=== PATIENT | female | born 1985 | race African-American/Black ===

== ENCOUNTER 2020-05-01 09:36 | Outpatient (REF) | payer OTHER, SELFPAY ==
[2020-05-01 10:16] LABS: MANUAL DIFF FLAG NO
[2020-05-01 10:18] LABS: Basophils Percent Auto 0.5 % (0-2); Eosinophils Absolute Auto 0.1 X10*3/uL (0.0-0.4); Eosinophils Percent Auto 1.5 % (0-4); Hematocrit 37.5 % (37-47); Hemoglobin 12.4 g/dl (12.0-16.0); Imm Gran Abs Auto 0.02 X10*3/uL (0.00-0.03); Imm Gran Pct Auto 0.3 % (0.0-0.4); Lymphocytes Absolute Auto 3.3 X10*3/uL (1.2-4.9); Lymphocytes Percent Auto 54.2 % (20-40); Mean Corpuscular HGB Conc 33.1 g/dl (31.0-35.0); Mean Corpuscular Hemoglobin 29.7 pg (27.0-33.0); Mean Corpuscular Volume 89.9 fL (80-98); Mean Platelet Volume 10.6 fL (9.4-12.3); Monocytes Absolute Auto 0.5 X10*3/uL (0.1-1.2); Monocytes Percent Auto 8.3 % (2-11); Neutrophils Absolute Auto 2.1 X10*3/uL (2.0-8.3); Neutrophils Percent Auto 35.2 % (45-73); Platelet Count 195 X10*3/uL (160-400); Red Blood Count 4.17 X10*6/uL (4.20-5.50); Red Cell Distribution Width 12.8 % (11.0-16.0)
[2020-05-01 11:08] LABS: Alanine Aminotransferase 12 U/L (0-31); Albumin Level 4.4 g/dL (3.5-5.0); Alkaline Phosphatase 52 U/L (39-117); Anion Gap 11 (12-20); Aspartate Amino Transferase 15 U/L (5-31); Bilirubin Total 0.4 mg/dL (0.0-1.0); Blood Urea Nitrogen 11 mg/dL (9-16); Calcium 8.9 mg/dL (8.4-10.2); Carbon Dioxide 26 mmol/L (22-29); Chloride 107 mmol/L (96-108); Cholesterol 164 mg/dL; Estimated Glomerular Filt Rate > 60; Glucose Fasting 90 mg/dL (60-99); HDL Cholesterol 44 mg/dL; LDL Cholesterol Calculated 111 mg/dl; Sodium 140 mmol/L (135-145); Triglycerides 46 mg/dL
[2020-05-01 11:23] LABS: TSH reflex Free T4 0.29 mIU/mL (0.32-4.0)
[2020-05-01 12:07] LABS: Free T4 (Free Thyroxine) 0.99 ng/dL (0.71-1.85)
== END 2020-05-01 09:37 | disposition home or self-care (01) ==
LOC: HO.LAB 09:36
PROVIDERS: PCP Internal Medicine; Visit Provider Internal Medicine
DX: Z00.00 Encounter for general adult medical examination without abnormal findings (principal); E66.9 Obesity, unspecified; R61 Generalized hyperhidrosis
CPT/HCPCS: 36415; 80053; 80061; 84439; 84443; 85025

== ENCOUNTER 2023-01-31 07:35 | Emergency (ER) | payer OTHER, SELFPAY ==
[2023-01-31 07:38] VITALS: BP 129/76; PULSE 93; RESP 18; TEMP 37.3; O2SAT 100; BMI 32.1
--- OUTSIDE RECORDS SUMMARY | 2023-01-31 07:47 | XMS_ITS | Continuity of Care Document ---
Author Name Unknown Organization [facility] Address [address] [place] [address]- Care Team Providers Care Loading Shovel Oiler Name Role Phone Antony BUSBY, Virgen Luna Primary Care Physicia n [facility] Date(s): 09[facility]19 - 09/13/19 [facility] [address] [address]- [facility] Attending Physician: Admtr, [id number] Allergies, Adverse Reactions, Alerts Substance Reaction Severity Status NKA Active Problem List Condition Effective Dates Status Health Status Inform ant Atypical squamous cell hedrick es of undetermined significance (ASCUS) on cervical cytology with negative high risk human papilloma virus (HPV) test result(Confirmed) Active Depo-Provera contraceptive status(Confirmed) Active Social History Social History Type Response Smoking Status Current some day ana buchanan entered on: 02/23/17 Sex
--- OUTSIDE RECORDS SUMMARY | 2023-01-31 07:47 | XMS_ITS | Continuity of Care Document ---
Author Name Unknown Organization [facility] Address [address] [place] [address]- Care Team Providers Care Brickmason Supervisor Name Role Phone Brayan Montaño MD Primary Care Physician [phone] [id number] Date(s): 09/01/22 - 12/10/22 [facility] [address] [address]- Attending Physician: Not on Staff, Attending MD Allergies, Adverse Reactions, Alerts No Known Allergies Problem List Condition Confirmation Course Effective Dates Status H ealth Status Informant Atypical squamous cell changes of undetermined significance (ASCUS) on cervical cytology with negative high risk human papilloma virus (HPV) test result Confirmed Active Depo-Provera contraceptive status Confirmed Active Obese class I Confirmed Active Social History Social History Type Response Smoking Status Former smoker, quit more than 30 days ago entered on: 03/25/22 Sex Patient Care team information Care Team Personnel Name: Brayan Montaño MD Position: Reference Physician Member Role: PCP Address: Address: [address] [place] [address] Drive [address] [place] [address]- Care Team Related Persons Name: MARVEL OTT Address: home [address] [address] Name: MISHA BURDEN Address: [address] [place] [address]
--- OUTSIDE RECORDS SUMMARY | 2023-01-31 07:47 | XMS_ITS | Continuity of Care Document ---
Author Name Unknown Organization [facility] Address [address] [place] [address]- Care Team Providers Care Linux System Administrator Name Role Phone Antony BUSBY, Virgen Luna Primary Care Physicia n [facility] Date(s): 01/04/20 - 02/03/20 [facility] [address] [address]- [facility] Allergies, Adverse Reactions, Alerts Substance Reaction Severity [...]
--- OUTSIDE RECORDS SUMMARY | 2023-01-31 07:47 | XMS_ITS | Continuity of Care Document ---
Author Name Unknown Organization [facility] Address [address] [place] [address]- Care Team Providers Care Medical Physics Researcher Name Role Phone Antony BUSBY, Virgen Luna Primary Care Physicia n Encounter [facility] Date(s): 01/04/20 - 02/27/20 [facility] [address] [address]- [facility] Attending Physician: Not on Staff, Attending MD Allergies, Adverse Reactions, Alerts Substance Reaction Severity [...]
--- OUTSIDE RECORDS SUMMARY | 2023-01-31 07:47 | XMS_ITS | Continuity of Care Document ---
Author Name Unknown Organization [facility] Address [address] [place] [address]- Care Team Providers Care Patching Machine Operator Name Role Phone Antony BUSBY, Virgen Luna Primary Care Physicia n [facility] Date(s): 06/15/19 - 10/03/19 [facility] [address] [address]- [facility] Attending Physician: Not on Staff, Attending MD [...]
--- OUTSIDE RECORDS SUMMARY | 2023-01-31 07:47 | XMS_ITS | Continuity of Care Document ---
Author Name Unknown Organization [facility] Address [address] [place] [address]- Care Team Providers Care Coordinator Volunteer Services Name Role Phone Antony BUSBY, Virgen Luna Primary Care Physicia n [facility] Date(s): 11/20/19 - 12/21/19 [facility] [address] [address]- [facility] Attending Physician: Not on Staff, Attending MD [...]
--- OUTSIDE RECORDS SUMMARY | 2023-01-31 07:47 | XMS_ITS | Continuity of Care Document ---
Author Name Unknown Organization [facility] Address [address] [place] [address]- Care Team Providers Care Waste Machine Tender Name Role Phone Brayan Montaño MD Primary Care Physician [phone] Encounter [facility] Date(s): 04/14/21 - 05/14/21 [facility] [address] [address]- Allergies, Adverse Reactions, Alerts Substance Reaction Severity Status NKA Active Problem List Condition Effective Dates Status Health Status Inform ant Atypical squamous cell hedrick es of undetermined significance (ASCUS) on cervical cytology with negative high risk human papilloma virus (HPV) test result(Confirmed) Active Depo-Provera contraceptive status(Confirmed) Active Social History Social History Type Response Smoking Status Current some day smo ker entered on: 02/23/17 Sex
--- OUTSIDE RECORDS SUMMARY | 2023-01-31 07:47 | XMS_ITS | Continuity of Care Document ---
Author Name Unknown Organization [facility] Address [address] [place] [address]- Care Team Providers Care Car Worker Name Role Phone Antony BUSBY, Virgen Luna Primary Care Physicia n [facility] Date(s): 09/03/19 - 12/19/19 [facility] [address] [address]- [facility] Attending Physician: Not on Staff, Attending [...]
--- OUTSIDE RECORDS SUMMARY | 2023-01-31 07:47 | XMS_ITS | Continuity of Care Document ---
Author Name Unknown Organization [facility] Address [address] [place] [address]- Care Team Providers Care Media Job Titles Name Role Phone Danyel BUSBY, Brayan Cope Primary Care Physician Encounter [facility] Date(s): 10/16/21 - 01/31/22 [facility] [address] [address]- Attending Physician: Not on Staff, Attending MD Allergies, Adverse Reactions, Alerts No Known Allergies Problem List Condition Effective Dates Status Health Status Inform ant Atypical squamous cell hedrick es of undetermined significance (ASCUS) on cervical cytology with negative high risk human papilloma virus (HPV) test result(Confirmed) Active Depo-Provera contraceptive status(Confirmed) Active Obese class I(Confirmed) Active Social History Social History Type Response Smoking Status Current some day ana buchanan entered on: 02/23/17 Sex
--- OUTSIDE RECORDS SUMMARY | 2023-01-31 07:47 | XMS_ITS | Continuity of Care Document ---
Author Name Unknown Organization [facility] Address [address] [place] [address]- Care Team Providers Care Supervisor Scrap Preparation Name Role Phone Brayan Montaño MD Primary Care Physician [facility] [id number] Date(s): 04/16/22 - 06/16/22 [facility] [address] [address]- Attending Physician: Not on Staff, Attending MD [...] Reference Physician Member Role: PCP Address: Address: [address] [place] [address] Drive [address] [place] [address]- Care Team Related Persons Name: MARVEL OTT Address: [address] [address] Name: MISHA BURDEN Address: home [address] [place] [address]
--- OUTSIDE RECORDS SUMMARY | 2023-01-31 07:47 | XMS_ITS | Continuity of Care Document ---
Author Name Unknown Organization [facility] Address [address] [place] [address]- Care Team Providers Care Boring Machine Operator Double End Name Role Phone Brayan Montaño MD Primary Care Physician Encounter [facility] Date(s): 11/03/21 - 12/03/21 [facility] [address] [address] Attending Physician: Nat Do Allergies, Adverse Reactions, Alerts No Known Allergies Problem List Condition Effective Dates Status Health Status Inform ant Atypical squamous cell hedrick es of undetermined significance (ASCUS) on cervical cytology with negative high risk human papilloma virus (HPV) test result(Confirmed) Active Depo-Provera contraceptive status(Confirmed) Active Obese class I(Confirmed) Active Social History Social History Type Response Smoking Status Current some day smo dewayne entered on: 02/23/17 Sex
--- OUTSIDE RECORDS SUMMARY | 2023-01-31 07:47 | XMS_ITS | Continuity of Care Document ---
Author Name Unknown Organization [facility] Address [address] [place] [address]- Care Team Providers Care Material Stress Tester Name Role Phone Danyel BUSBY, Brayan Cope Primary Care Physician Encounter [facility] Date(s): 10/16/21 - 12/03/21 [facility] [address] [address]- Attending Physician: Not on Staff, Attending MD [...]
--- OUTSIDE RECORDS SUMMARY | 2023-01-31 07:47 | XMS_ITS | Continuity of Care Document ---
Author Name Unknown Organization [facility] Address [address] [place] [address]- Care Team Providers Care Fiberglass Grinder Name Role Phone Antony BUSBY, Virgen Luna Primary Care Physicia n [facility] Date(s): 01/02/20 - 02/01/20 [facility] [address] [address]- [facility] Allergies, Adverse Reactions, Alerts Substance Reaction Severity [...]
--- OUTSIDE RECORDS SUMMARY | 2023-01-31 07:47 | XMS_ITS | Continuity of Care Document ---
Author Name Unknown Organization [facility] Address [address] [place] [address]- Care Team Providers Care Psych Tech Name Role Phone Brayan Montaño MD Primary Care Physician [phone] Encounter [facility] Date(s): 11/07/20 - [facility]/14/21 [facility] [address] [address]- Attending Physician: Not on Staff, Attending MD [...]
--- NOTE | 2023-01-31 08:17 | PC.NURSE ---
Discharge plan reviewed with patient who verbalized understanding
--- NOTE | 2023-01-31 08:20 | ED.ALLEREA ---
HPI - Allergic Reaction General Chief complaint: Allergic Reaction Stated complaint: Allergic reaction Time Seen by Provider: 01/31/23 07:43 Source: patient Mode of arrival: ambulatory Limitations: no limitations History of Present Illness HPI narrative: 37-year-old female history of hyperhidrosis, obesity presenting to the emergency department with an itchy red scalp that started a few days ago status post getting a weave and her hair done patient tells me she thinks she is having an allergic reaction to the hair products. She tells me she thinks her head looks bigger. Patient is laughing and states that she has and staffed itching her head. And she had to call out of work because it was so itchy. Denies fevers, chills, headache, vision changes, dizziness, chest pain, shortness of breath, nausea, vomiting, abdominal pain Related Data Previous Rx's Medication Instructions Recorded hydroxyzine HCl 25 mg tablet 25 mg PO BEDTIME PRN rash #10 tabs 01/31/23 prednisone 20 mg tablet 20 mg PO DAILY 5 days #5 tabs 01/31/23 Allergies Allergy/AdvReac Type Severity Reaction Status Date / Time No Known Allergies Allergy Verified 01/29/22 09:15 Review of Systems Review of Systems: Constitutional : No Weight loss, No Fever, No Chills, No Fatigue, No Malaise ENT/Mouth : No sore throat, No Rhinorrhea Eyes: No Eye Pain, No Swelling, No Redness Cardiovascular : No Chest Pain, No SOB, No Dyspnea on Exertion, No Orthopnea, No Edema, No Palpitations Respiratory : No Cough, No Sputum, No Wheezing Gastrointestinal : No Nausea, No Vomiting, No Diarrhea, No Constipation, No abdominal Pain, No Hematochezia, No Melena Genitourinary : No Dysuria, No Urinary Frequency, No Hematuria, Musculoskeletal : No joint pain, No Myalgias, No Joint Swelling Skin : No Skin Lesions, No rash Neuro : No Weakness, No Numbness, No Dizziness, No Headache Psych : No Anxiety/Panic, No Depression All other systems reviewed and are negative Yes all other systems are reviewed and are negative [facility] Past Medical History Attestation statement: The following information was validated with the patient. Source: old records reviewed and nursing notes reviewed Medical History Hyperhidrosis Obesity (BMI 30-39.9) Surgical History Previous section Family History Family History Mother Hyperlipidemia Social History Social History Advance Directives: No Advance Directives Information Provided: No Physical Exam ED Vital Signs: Vital Signs - 24 hr 01/31/23 07:38 Temperature 99.1 F Pulse Rate 93 Respiratory Rate 18 Blood Pressure 129/76 Pulse Oximetry 100 Oxygen Delivery Method Room Air BMI result Body Mass Index 32.1 vss Appearance: Alert.? Oriented X3.? No acute distress.? Head: Normocephalic, atraumatic, no step-offs or deformities. Normal scalp. No visualized mites or lice. Eyes: Pupils equal, round and reactive to light.?\ Throat: airway patent. Uvula midline. Speaking in full sentences controlling secretions well. CVS: Normal heart rate and rhythm.? Pulses normal.? Respiratory: No respiratory distress.? Breath sounds normal.? Abdomen: Soft and nontender.? Skin: Skin warm and dry.? Normal skin color.? Normal skin turgor.? Extremities: No lower extremity edema.? No calf ttp. 5/5 strength to bilateral upper and lower extremities Neuro: Oriented X 3.? No motor deficit.? No sensory deficit. CN 2-12 intact Medical Decision Making Medical Decision Making [facility] Narrative: 0800 37-year-old female presents with an itchy scalp after getting her hair weave and colored PE benign this is likely a localized allergic reaction. No signs of anaphylaxis. I do not suspect head lice. No signs of necrotizing infection, SJS, [place]. Plan at this time discharge home with prednisone. And Atarax for itchiness. Differential Diagnosis Differential Diagnoses: The differential diagnosis associated with the presentation includes this is likely a localized allergic reaction. No signs of anaphylaxis. I do not suspect head lice. No signs of necrotizing infection, SJS, [place]. Admission/Observation Consideration of admission/observation: Escalation of care including admission/observation considered Not indicated Core Measures AMI core measures followed: Yes Measure exclusions: not indicated Critical Care Time Critical Care Time Critical Care Time: No Discharge Plan Discharge Clinical Impression: Allergic reaction Patient Disposition: Home, Self-Care Instructions: General Allergic Reaction (ED), Allergy Testing (ED) Additional Instructions: Take your medications as prescribed. If you were prescribed antibiotics today, it is important that you take your medication to their entirety, do not skip any doses, do not finish them early. Follow-up with your primary care provider this week. Return to the emergency department with new or worsening symptoms. Such as fevers, chills, chest pain, shortness of breath, nausea, vomiting, dizziness, headache, vision changes, lethargy In case of emergency call 911 Prescriptions: New prednisone 20 mg tablet 20 mg PO DAILY 5 Days Qty: 5 0RF hydroxyzine HCl 25 mg tablet 25 mg PO BEDTIME PRN (Reason: rash) Qty: 10 0RF Referrals: Brayan Montaño MD [Primary Care Provider] - 2 days Stand Alone Forms: Work/School Release Interventions: ED Discharge Assessment Last Done: 01/31/23 08:16 Discharge Date/Time: 01/31/23 08:17
== END 2023-01-31 08:17 | disposition home or self-care (01) ==
PROVIDERS: Emergency Provider Emergency Medicine; PCP Internal Medicine
DX: L50.0 Allergic urticaria (principal)
CPT/HCPCS: 99282; 99283

== ENCOUNTER 2023-06-25 08:41 | Emergency (ER) | payer OTHER, SELFPAY ==
--- NOTE | ~2023-06-25 | XR_ITS ---
EXAMINATION: XR ELBOW, RIGHT CLINICAL INFORMATION: Pain COMPARISON: None available. TECHNIQUE: AP, lateral, and oblique views of the right elbow. FINDINGS: The bones and soft tissues are normal. No fracture or joint effusion. Alignment is anatomic. Joint spaces are maintained. XR/XR elbow RT 2V IMPRESSION: Normal right elbow.
[2023-06-25 08:48] VITALS: BP 119/82; PULSE 89; RESP 18; TEMP 37.4; O2SAT 98; BMI 32.9
--- NOTE | 2023-06-25 10:18 | ED.EXTPRO ---
HPI - Extremity Problem General Chief complaint: Extremity Injury, Upper Stated complaint: R arm pain Time Seen by Provider: 06/25/23 09:42 Source: patient Mode of arrival: ambulatory Limitations: no limitations History of Present Illness HPI Narrative: 37 yo female previously healthy, right hand dominant here with complaints of right elbow pain for the last 3-4 weeks. 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 She can not recall any specific injury. She denies any associated weakness. She does have intermittent numbness and tingling from the elbow down to the wrist. She has been using icy Hot, naproxen 500 mg or ibuprofen 200 mg intermittently. Related Data Previous Rx's Medication Instructions Recorded hydroxyzine HCl 25 mg tablet 25 mg PO BEDTIME PRN rash #10 tabs 01/31/23 prednisone 20 mg tablet 20 mg PO DAILY 5 days #5 tabs 01/31/23 cyclobenzaprine 10 mg tablet 10 mg PO TID PRN muscle spasm #15 06/25/23 tabs ibuprofen 800 mg tablet 800 mg PO Q8H PRN pain #30 tabs 06/25/23 Allergies Allergy/AdvReac Type Severity Reaction Status Date / Time No Known Allergies Allergy Verified 06/25/23 08:48 Review of Systems Review of Systems: Yes all other systems are reviewed and are negative Constitutional: Constitutional: Reports no additional constitutional complaints, Denies body ache(s), Denies chills, Denies fever(s), Denies headache(s) and Denies weakness Eyes: Eyes: Reports no additional eye complaints and Denies change in vision ENT: Reports system reviewed and no additional complaints, except as documented, Denies dizziness, Denies headache(s), Denies nasal congestion, Denies nasal discharge and Denies neck pain Cardiovascular: Cardiovascular: Reports no additional cardiovascular complaints, Denies chest pain, Denies leg edema and Denies dyspnea Respiratory: Respiratory: Reports no additional respiratory complaints, Denies cough and Denies dyspnea Gastrointestinal: Gastrointestinal: Reports no additional gastrointestinal complaints, Denies abdominal pain, Denies diarrhea, Denies nausea and Denies vomiting Genitourinary: Genitourinary: Reports no additional female genitourinary complaints and Denies urinary incontinence Musculoskeletal: Musculoskeletal: Reports no additional musculoskeletal complaints, Denies back pain, Reports arthralgias, Denies joint swelling, Denies neck pain, Reports numbness and Reports tingling Integumentary/Breasts: Skin/Breast: Reports system reviewed and no additional complaints, except as docu and Denies rash Neurologic: Reports system reviewed and no additional complaints, except as documented, Denies Abnormal speech present, Denies dizziness, Denies headache(s), Reports numbness, Reports tingling and Denies weakness PMFSH Past Medical History Attestation statement: The following information was validated with the patient. Source: old records reviewed and nursing notes reviewed Onset Date is defined in the Problem List Problems that require an onset date and time if occurred within 24 hrs of arrival to the ED Aortic Dissection and Rupture; Neurologic impairment; Cardiopulmonary Arrest; Endotracheal Intubation; Insertion or Replacement of Mechanical Circulatory Assist Device Medical History Hyperhidrosis Obesity (BMI 30-39.9) Surgical History Previous section Family History Family History Mother Hyperlipidemia Social History Social History Advance Directives: No Advance Directives Information Provided: No Physical Exam Vital Signs: Vital Signs: Last Vital Signs Temp 99.4 F 06/25/23 08:48 Pulse 89 06/25/23 08:48 Resp 18 06/25/23 08:48 BP 119/82 06/25/23 08:48 Pulse Ox 98 06/25/23 08:48 O2 Del Method Room Air 06/25/23 08:48 BMI result Body Mass Index 32.9 Const: General: cooperative, healthy appearing, comfortable and no acute distress Orientation/consciousness: patient oriented x3 Limitations: no limitations HEENT: Head: Yes normal to inspection Ears: hearing grossly normal bilaterally General nose exam: Normal external nose present Face and sinus: Yes normal facial exam Mouth: Normal oral and palatal mucosa present Throat: Yes posterior oropharynx normal Eyes: General: appearance normal, both eyes and all related structures Pupils: Equal, round and reactive pupils present Neck: Neck: Yes normal visual inspection Chest: Chest palpation & inspection: normal inspection of the chest Resp: Effort & Inspection: normal respiratory effort Auscultation: clear to auscultation bilaterally Cardio: Rate: regular rate Rhythm: regular rhythm Peripheral pulses: Peripheral pulses 2+ throughout GI: Inspection: Yes normal to inspection Palpation (GI): Soft to palpation and nontender Auscultation: normal bowel sounds Back/Spine/Pelvis: Thoracic/Lumbar Spine: thoracic and lumbar spine normal to inspection Skin: General skin exam: no rashes or lesions noted Neuro: General: patient oriented x3, no focal motor deficits and normal sensation to monofilament Cranial nerves: Yes Equal, round and reactive pupils present Cognition (Neuro): normal cognition Speech: No Abnormal speech present Gait exam (Neuro): Normal gait present Motor exam (neuro): 5/5 motor strength present throughout Extrem: Other: Pain over the right lateral elbow which is worsened with extension and flexion. No pain on palpation over the shoulder or wrist with full range of motion of these joints. Normal distal sensation. Normal radial and ulnar pulses. General: Yes normal to inspection Course Course Course Narrative: x-ray shows no acute finding. Likely lateral epicondylitis. Recommend supportive care. Reviewed worrisome signs and symptoms of when to return to the emergency room. Comfortable plan for discharge home. Medical Decision Making Medical Decision Making MDM Narrative: 37 yo female previously healthy, right hand dominant here with complaints of right elbow pain for the last 3-4 weeks. 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 She can not recall any specific injury. She denies any associated weakness. She does have intermittent numbness and tingling from the elbow down to the wrist. She has been using icy Hot, naproxen 500 mg or ibuprofen 200 mg intermittently. Pain over the right lateral elbow which is worsened with extension and flexion. No pain on palpation over the shoulder or wrist with full range of motion of these joints. Normal distal sensation. Normal radial and ulnar pulses. Likely lateral epicondylitis Will check x-ray Differential Diagnosis Differential Diagnoses: The differential diagnosis associated with the presentation includes epicondylitis, tendonitis, carpal tunnel low concern for fracture, dislocation, vascular injury Admission/Observation Consideration of admission/observation: Escalation of care including admission/observation considered low concern for complex fracture, dislocation, vascular injury requiring advanced imaging, urgent orthopedic consultation Independent Interpretation I performed an independent interpretation of an: Plain X-Ray Interpretation: I independently viewed the x-ray and agree with the radiology report Radiology Impression Discussion of test interpretation with radiology: I have reviewed the radiologist's reading. Radiologist Impression: [address] [address] XRay Report Signed Patient: Darlene Yao MR#: [id number] : 1985 Acct:[id number] Age/Sex: 37 / F ADM Date: 06/25/23 Loc: HO.ED Attending Dr: Ordering Physician: Roro Watkins NP Date of Service: 06/25/23 Procedure(s): XR elbow RT 2V Accession Number(s): [id number] cc: Brayan Montaño MD; Roro Watkins NP~ EXAMINATION: XR ELBOW, RIGHT CLINICAL INFORMATION: Pain COMPARISON: None available. TECHNIQUE: AP, lateral, and oblique views of the right elbow. FINDINGS: The bones and soft tissues are normal. No fracture or joint effusion. Alignment is anatomic. Joint spaces are maintained. XR/XR elbow RT 2V IMPRESSION: Normal right elbow. Tests considered The following testing was considered but not selected: low concern for complex fracture, dislocation, vascular injury requiring advanced imaging Prescription Management I considered prescription management with: Pain Medication Discharge Plan Discharge Clinical Impression: Epicondylitis, lateral Patient Disposition: Home, Self-Care Instructions: Tennis Elbow (ED) Additional Instructions: heat or ice Gentle stretching Rest Follow-up with orthopedics for any continued symptoms Prescriptions: New ibuprofen 800 mg tablet 800 mg PO Q8H PRN (Reason: pain) Qty: 30 0RF cyclobenzaprine 10 mg tablet 10 mg PO TID PRN (Reason: muscle spasm) Qty: 15 0RF No Action prednisone 20 mg tablet 20 mg PO DAILY 5 Days Qty: 5 0RF hydroxyzine HCl 25 mg tablet 25 mg PO BEDTIME PRN (Reason: rash) Qty: 10 0RF Referrals: [facility] [place] Group] - 1 week (for continued symptoms ) Stand Alone Forms: Work/School Release
== END 2023-06-25 11:08 | disposition home or self-care (01) ==
PROVIDERS: Emergency Provider Emergency Medicine; PCP Internal Medicine
DX: M77.11 Lateral epicondylitis, right elbow (principal)
CPT/HCPCS: 73070; 99283

== ENCOUNTER 2023-07-22 10:46 | Outpatient (AMB) | payer OTHER, SELFPAY ==
--- NOTE | 2023-07-22 10:53 | MHC.OFFVIS ---
Intake Intake Visit Reasons: New PT - right elbow pain Intake Note: Darlene is a 37 year old right hand dominant female who presents today as a new patient for a evaluation of her right elbow pain. Patient reports ongoing pain for a couple of weeks. 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 She can not recall any specific injury. She does have intermittent numbness and tingling from the elbow down to the wrist. Her pain/numbness is worse at night per patient. She states that using topical gel with mild relief. Hx of taking ibuprofen with no relief. with Hx of using tennis elbow brace with no relief. Patient states when using hot compresses make her pain feel better. Allergies No Known Allergies Allergy (Verified 07/22/23 10:57) HPI New PT - right elbow pain HPI Details 37-year-old right hand dominant female who presents in the office today, as a new patient, for an evaluation of right elbow pain. The patient presented to the ED on 06/25/2023 status post 3-4 weeks of pain. She reports intermittent numbness and tingling from the elbow down to the wrist, per the ED note. X-rays were obtained. While in the office today the patient reports ongoing pain for a couple of weeks. She can not recall any known injury. She reports intermittent numbness and tingling from the elbow to the wrist. She states her numbness is worse at night. She claims topical gel gives her mild relief. She states Ibuprofen gives her no relief. She has been wearing a tennis elbow brace with no relief. She states a hot compress gives some pain relief. 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 [facility] Medical History Hyperhidrosis Obesity (BMI 30-39.9) Surgical History Previous section Family History Mother Hyperlipidemia Social History (Updated 07/22/23 @ 10:58 by Britton Mo) Patient Tobacco Use Status: Never used Tobacco Substance Use Type: Marijuana Review of Systems Const All systems reviewed & are unremarkable except as noted in HPI and below Physical Exam Const General: cooperative and no acute distress Orientation/consciousness: patient oriented x3 Resp Effort & Inspection: normal respiratory effort and able to speak in complete sentences Cardio Peripheral pulses: Peripheral pulses 2+ throughout Skin General skin exam: no rashes or lesions noted Neuro General: patient oriented x3 Extrem Other: Right elbow: Normal to inspection. No ecchymosis, erythema, or edema. Tenderness to palpation over the lateral epicondyle. Full ROM in all planes. No pain at the lateral epicondyle with resisted wrist extension. Sensation intact. Radial pulse intact. Assessment & Plan Assessment & Plan (1) Lateral epicondylitis, right elbow: Code(s): M77.11 - Lateral epicondylitis, right elbow Plan Ms. Yao is a 37-year-old right hand dominant female who presents in the office today, as a new patient, for an evaluation of right elbow pain. The patient presented to the ED on 06/25/2023 status post 3-4 weeks of pain. She reports intermittent numbness and tingling from the elbow down to the wrist, per the ED note. X-rays were obtained. While in the office today the patient reports ongoing pain for a couple of weeks. She can not recall any known injury. She reports intermittent numbness and tingling from the elbow to the wrist. She states her numbness is worse at night. She claims topical gel gives her mild relief. She states Ibuprofen gives her no relief. She has been wearing a tennis elbow brace with no relief. She states a hot compress gives some pain relief. 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 The patient was offered a referral to occupational therapy in the office today, which she has agreed to attend and complete all sessions. I discussed the role of cortisone injections with the patient, however, at this time she wishes to deferred to due hesitation of her pain. She has requested a light duty note for work, I have recommended no repetitive motion and a 10lb weight limit for lifting. Follow up will be 6 weeks, or sooner if needed. X-rays of the right elbow, obtained on 06/25/2023, revealed: No acute fracture or dislocation. Orders: Orders OT Evaluation and Treatment Today M77.11 - Lateral epicondylitis, right elbow Patient Instructions: Scribed by Erika Gonzalez, medical record librarians teacher, for Diane Paul PA-C on 07/22/2023 at 10:48 am, EST. Coding Level of Care Code New Pt Level 4 (97710) Diagnoses Lateral epicondylitis, right elbow M77.11
== END 2023-07-22 11:20 | disposition home or self-care (01) ==
PROVIDERS: PCP Internal Medicine; Visit Provider Physician Assistant
DX: M77.11 Lateral epicondylitis, right elbow (principal)
CPT/HCPCS: 99203

== ENCOUNTER → 2023-07-22 10:46 | Outpatient (BNVA) | payer OTHER, SELFPAY | PROVIDERS: PCP Internal Medicine; Visit Provider Physician Assistant | DX: M77.11 Lateral epicondylitis, right elbow (principal) | CPT/HCPCS: 99202 ==

== ENCOUNTER 2023-11-24 17:04 | Emergency (ER) | payer OTHER, SELFPAY ==
--- NOTE | 2023-11-24 | ECG_ITS ---
Test Reason : PALPITATIONS Blood Pressure : / mmHG Vent. Rate : 065 BPM Atrial Rate : 065 BPM P-R Int : 170 ms QRS Dur : 070 ms QT Int : 400 ms P-R-T Axes : 062 061 051 degrees QTc Int : 416 ms Artifact in tracing Normal sinus rhythm Septal infarct , age undetermined Abnormal ECG No previous ECGs available Referred By: Generic ED Physician Electronically Signed By:PRATEEK KEYS
[2023-11-24 18:00] VITALS: BP 142/77; PULSE 66; RESP 17; TEMP 37; O2SAT 99; BMI 33.1
[2023-11-24 19:00] LABS: MANUAL DIFF FLAG NO
[2023-11-24 19:10] LABS: Basophils Absolute Auto 0.1 X10*3/uL (0.0-0.2); Basophils Percent Auto 0.6 % (0-2); Eosinophils Absolute Auto 0.1 X10*3/uL (0.0-0.4); Eosinophils Percent Auto 0.7 % (0-4); Hemoglobin 12.6 g/dl (12.0-16.0); Imm Gran Abs Auto 0.03 X10*3/uL (0.00-0.03); Imm Gran Pct Auto 0.3 % (0.0-0.4); Lymphocytes Absolute Auto 2.6 X10*3/uL (1.2-4.9); Lymphocytes Percent Auto 28.7 % (20-40); Mean Corpuscular HGB Conc 34.1 g/dl (31.0-35.0); Mean Corpuscular Hemoglobin 29.7 pg (27.0-33.0); Mean Corpuscular Volume 87.3 fL (80.0-98.0); Mean Platelet Volume 10.2 fL (9.4-12.3); Monocytes Absolute Auto 0.8 X10*3/uL (0.1-1.2); Monocytes Percent Auto 9.3 % (2-11); Neutrophils Absolute Auto 5.4 x10*3/uL (2.0-8.3); Neutrophils Percent Auto 60.4 % (45-73); Platelet Count 239 X10*3/uL (160-400); Red Blood Count 4.24 X10*6/uL (4.20-5.50); Red Cell Distribution Width 12.8 % (11.0-16.0); White Blood Count 8.9 X10*3/uL (4.8-10.8)
[2023-11-24 19:19] LABS: Alanine Aminotransferase 12 U/L (0-31); Albumin Level 4.5 g/dL (3.5-5.0); Alkaline Phosphatase 57 U/L (39-117); Anion Gap 9 (12-20); Aspartate Amino Transferase 17 U/L (5-31); Bilirubin Direct 0.2 mg/dL (0.0-0.5); Bilirubin Total 0.4 mg/dL (0.0-1.0); Blood Urea Nitrogen 11 mg/dL (9-16); Calcium 9.7 mg/dL (8.4-10.2); Carbon Dioxide 24 mmol/L (22-29); Chloride 107 mmol/L (96-108); Creatinine Clr Calc Pharmacy 121.4; Estimated Glomerular Filt Rate > 60; Glucose Random 90 mg/dL (60-115); Lipase 29 U/L (8-78); Magnesium 2.1 mg/dL (1.6-2.6); Potassium 3.4 mmol/L (3.3-5.1); Sodium 137 mmol/L (135-145); Total Protein 7.6 g/dL (6.5-8.0)
[2023-11-24 19:28] LABS: Troponin-I High Sensitivity < 2.7 ng/L (<3.5-17.0)
[2023-11-24 19:40] LABS: TSH reflex Free T4 0.92 uIU/mL (0.32-4.0)
[2023-11-24 19:50] LABS: INTERNATIONAL NORM RATIO 1.1 (0.9-1.1); Prothrombin Time 13.4 SEC (11.1-13.3)
--- NOTE | 2023-11-24 19:50 | ED_ITS ---
HPI - Dizziness General Chief Complaint: Dizziness Stated Complaint: dizziness heart racing Time Seen by Provider: 11/25/23 00:23 Source: patient Mode of arrival: ambulatory Limitations: no limitations History of Present Illness ED Provider: Jocelyne Buckley PA-C HPI Narrative: 37-year-old female with history of anxiety presents with palpitations. Patient states she has been having intermittent palpitations over the past 2 weeks. When they occur, patient describes a ?racing heart rate, in the sense that she can not catch her breath. Patient does admit that she is hyperventilating during these periods. Patient gets to the point where she feels as if she is going to ?pass out?. Patient states she has numerous psychosocial stressors at home involving her daughter; the daughter is currently suicidal and is a meds counseling. Patient denies chest pain, known thyroid dysfunction. Related Data Previous Rx's ?Medication ?Instructions ?Recorded hydroxyzine HCl 10 mg tablet 10 mg PO DAILY #30 tabs 11/30/23 cyclobenzaprine 10 mg tablet 10 mg PO TID PRN muscle spasm #30 12/02/23 tabs ibuprofen 800 mg tablet 800 mg PO Q8H PRN pain #90 tabs 12/02/23 Allergies Allergy/AdvReac Type Severity Reaction Status Date / Time No Known Allergies Allergy Verified 11/30/23 10:23 Review of Systems 2 Review of Systems: Yes all other systems are reviewed and are negative Constitutional: Constitutional: Denies fatigue and Denies fever(s) Cardiovascular: Cardiovascular: Denies chest pain, Reports palpitations and Denies dyspnea Respiratory: Respiratory: Denies dyspnea Gastrointestinal: Gastrointestinal: Denies nausea Psychiatric: Psychiatric: Reports anxiety and Reports panic attacks Endocrine: Endocrine: Denies fatigue and Reports palpitations PMF Past Medical History Attestation statement: The following information was validated with the patient. Medical History Hyperhidrosis Obesity (BMI 30-39.9) Surgical History Previous section Family History Family History (Updated 11/30/23 @ 10:31 by FROILAN Morris) Mother Hyperlipidemia Other Mental health disorder Social History Social History (Updated 11/30/23 @ 10:32 by SCOTT Morris Housing: Apartment Alcohol intake: never Patient Tobacco Use Status: Never used Tobacco e-Cigarette/Vaping Use: Never Used Second Hand Smoke Exposure: No Substance Use Type: Marijuana Substance Use Frequency: Occasionally service: No Current occupational status: employed Current occupation: [employer] Cognitive needs: No Hearing needs: No Vision needs: No Physical Exam 2 Vital Signs: Vital Signs: Last Vital Signs Temp 98.0 F 11/25/23 02:27 Pulse 55 11/25/23 02:27 Resp 17 11/25/23 02:27 BP 129/84 11/25/23 02:27 Pulse Ox 100 11/25/23 01:45 O2 Del Method Room Air 11/25/23 02:27 BMI result Body Mass Index 33.1 Const: Other: Alert well in appearance sitting up on her phone in bed Orientation/consciousness: oriented to person, oriented to place and oriented to time Resp: Other: Nonlabored respiration Cardio: Other: Normal peripheral perfusion Skin: Other: No rash Neuro: General: oriented to person, oriented to place and oriented to time Extrem: Other: Ambulates with normal steady gait Psych: Other: Somewhat hostile at times, overall cooperative Course Course Course Narrative: This is an RME: Additional HPI, ROS, PE not included below will be deferred to primary provider. RME assessment and note performed by: Adelina Srivastava PA-C This is a 37-year-old female, with a history of hyperhidrosis, who presents emergency department with complaints of near syncope. She feels like her heart is beating fast in his also experiencing some lightheadedness. Symptoms started 2 weeks ago however reports that the symptoms have resolved. She states that yesterday while she was lying on her bed she felt as though her heart was beating very fast. She was at a today and felt lightheaded palpitations. Pulse 66 beats per minute. Plan: Labs, EKG, further ER evaluation needed. Medical Decision Making Medical Decision Making MDM Narrative: 37-year-old female with history of anxiety presents with palpitations. Patient states she has been having intermittent palpitations over the past 2 weeks. When they occur, patient describes a ?racing heart rate, in the sense that she can not catch her breath. Patient does admit that she is hyperventilating during these periods. Patient gets to the point where she feels as if she is going to ?pass out?. Patient states she has numerous psychosocial stressors at home involving her daughter; the daughter is currently suicidal and is a meds counseling. Patient denies chest pain, known thyroid dysfunction. Problem: Anxiety History: Per patient I have considered the following differential diagnoses: Palpitations, orthostatic hypotension, panic attack, ACS, thyroid dysfunction, arrhythmia Plan: I do feel the patient is having panick attacks as the cause for her palpitations and sense that she can not catch her breath. Patient admits that she has had panic attacks in the past, and that her symptoms are consistent with her prior episodes. We will be sending with outpatient resources for counseling and therapy in regard to her numerous psychosocial stressors. Screening labs were obtained from triage, there is no underlying or get an cause identified that could have potentially acted her palpitations; i.e. anemia, infection, electrolyte abnormality. We will be adding on a TSH and T4. There was no arrhythmia identified on the EKG. The patient will be advised to follow up as an outpatient for Holter monitor trial to determine if she truly has an abnormal rhythm of the heart. ACS also considered, however her symptoms are not consistent with ACS and she has no risk factors for vascular disease, her heart score is 0. Troponin was obtained as well. Orthostatic vitals obtained, and they are within normal limits. I have independently reviewed the following tests: Labs: No leukocytosis, no anemia, no electrolyte abnormality, thyroid function normal, trop negative EKG: Sinus rhythm, no ischemic changes no ectopy Differential Diagnosis Differential Diagnoses: The differential diagnosis associated with the presentation includes Palpitations, orthostatic hypotension, panic attack, ACS, thyroid dysfunction, arrhythmia Lab Data 11/24/23 18:53 11/24/23 18:53 Labs: Lab Results 11/24/23 11/24/23 Range/Units 18:53 19:29 WBC 8.9 (4.8-10.8) X10*3/uL RBC 4.24 (4.20-5.50) X10*6/uL Hgb 12.6 (12.0-16.0) g/dl Hct 37.0 (37.0-47.0) % MCV 87.3 (80.0-98.0) fL MCH 29.7 (27.0-33.0) pg MCHC 34.1 (31.0-35.0) g/dl RDW 12.8 (11.0-16.0) % Plt Count 239 (160-400) X10*3/uL MPV 10.2 (9.4-12.3) fL Immature Gran % (Auto) 0.3 (0.0-0.4) % Neut % (Auto) 60.4 (45-73) % Lymph % (Auto) 28.7 (20-40) % [place] % (Auto) 9.3 (2-11) % Eos % (Auto) 0.7 (0-4) % Baso % (Auto) 0.6 (0-2) % Lymph # (Auto) 2.6 (1.2-4.9) X10*3/uL [place] # (Auto) 0.8 (0.1-1.2) X10*3/uL Eos # (Auto) 0.1 (0.0-0.4) X10*3/uL Baso # (Auto) 0.1 (0.0-0.2) X10*3/uL Abs Immat Gran (auto) 0.03 (0.00-0.03) X10*3/uL Absolute Neuts (auto) 5.4 (2.0-8.3) x10*3/uL Absolute Nucleated RBC 0.000 (0.0-0.012) X10*3/uL Nucleated RBC % (auto) 0.0 (0.0-0.2) /100WBC PT 13.4 H (11.1-13.3) SEC INR 1.1 (0.9-1.1) APTT 27.7 (26.0-36.8) SEC Sodium 137 (135-145) mmol/L Potassium 3.4 (3.3-5.1) mmol/L Chloride 107 (96-108) mmol/L Carbon Dioxide 24 (22-29) mmol/L Anion Gap 9 L (12-20) BUN 11 (9-16) mg/dL Creatinine 0.63 (0.5-1.4) mg/dL Estim Creat Clear Calc 121.4 Estimated GFR > 60 Random Glucose 90 (60-115) mg/dL Calcium 9.7 D (8.4-10.2) mg/dL Magnesium 2.1 (1.6-2.6) mg/dL Total Bilirubin 0.4 (0.0-1.0) mg/dL Direct Bilirubin 0.2 (0.0-0.5) mg/dL AST 17 (5-31) U/L ALT 12 (0-31) U/L Alkaline Phosphatase 57 (39-117) U/L Troponin I High Sens < 2.7 (<3.5-17.0) ng/L Total Protein 7.6 (6.5-8.0) g/dL Albumin 4.5 (3.5-5.0) g/dL Lipase 29 (8-78) U/L TSH 0.92 (0.32-4.0) uIU/mL Discharge Plan Discharge Clinical Impression: Psychosocial stressors, Heart palpitations, Anxiety Patient Disposition: Home, Self-Care Instructions: Heart Palpitations (ED), Anxiety (ED) Additional Instructions: You were seen in the emergency department for palpitations. All of your screening labs were completely normal. There were no concerning changes on her EKG. I do feel that your recent psychosocial stressors are contributing to the palpitations, I do feel that you have been having panic attacks over the past few weeks. I am prescribing a short course of hydroxyzine, this is a medication that we used to treat anxiety, use it as needed. To note this medication may cause drowsiness. Do not drive or operate machinery while taking the medication. I have also sent you with a list of outpatient resources for you to seek counseling. Follow up with your primary care provider in regard to the palpitations. It is likely that you will be placed on a Holter monitor trial to determine the nature of the abnormal rhythm you are experiencing. Prescriptions: No Action ibuprofen 800 mg tablet 800 mg PO Q8H PRN (Reason: pain) Qty: 90 0RF Rx Instructions: Take with food cyclobenzaprine 10 mg tablet 10 mg PO TID PRN (Reason: muscle spasm) Qty: 30 0RF hydroxyzine HCl 10 mg tablet 10 mg PO DAILY Qty: 30 0RF Stand Alone Forms: Work/School Release Interventions: ED Discharge Assessment Last Done: 11/25/23 02:27 Discharge Date/Time: 11/25/23 02:33 Print Language: Japanese
[2023-11-24 19:53] LABS: Partial Thromboplastin Time 27.7 SEC (26.0-36.8)
[2023-11-24 22:49] VITALS: BP 117/66; PULSE 57; RESP 15; TEMP 37.1; O2SAT 99
[2023-11-25 01:39] VITALS: BP 115/68; PULSE 59
[2023-11-25 01:41] VITALS: BP 121/67; PULSE 57
[2023-11-25 01:43] VITALS: BP 139/81; PULSE 63
[2023-11-25 01:45] VITALS: BP 112/70; PULSE 59; RESP 17; TEMP 37.3; O2SAT 100
[2023-11-25 02:27] VITALS: BP 129/84; PULSE 55; RESP 17; TEMP 36.7
== END 2023-11-25 02:33 | disposition home or self-care (01) ==
PROVIDERS: Physician Assistant Medical; Emergency Provider Emergency Medicine; PCP Internal Medicine
DX: F43.9 Reaction to severe stress, unspecified (principal); R00.2 Palpitations; F41.9 Anxiety disorder, unspecified
CPT/HCPCS: 36415; 80048; 80076; 83690; 83735; 84443; 84484; 85025; 85610; 85730; 93005; 99283; 99284

== ENCOUNTER → 2023-11-24 17:14 | Outpatient (BNV) | payer OTHER, SELFPAY | PROVIDERS: Emergency Provider Emergency Medicine; PCP Internal Medicine; Visit Provider Internal Medicine | DX: R00.2 Palpitations (principal) | CPT/HCPCS: 93010 ==

== ENCOUNTER 2023-11-30 10:08 | Outpatient (AMB) | payer OTHER, SELFPAY ==
--- NOTE | 2023-11-30 10:19 | MHC.PC.OV ---
Vital Signs 11/30/23 10:24 Height 5 ft 3 in Weight 176 lb 8 oz BMI 31.3 BP 110/76 Blood Pressure Location Lt brachial Position Sitting Intake Visit Reasons: Ed f/u, med refills/ establish care Intake Note: Patient is here to re-establish care, previous pcp is Dr Montaño. Medication review and refill. Human Resources Office Assistant Required: No Roll Tender: Not Required per policy Accompanied by: Self / Same As Patient Allergies No Known Allergies Allergy (Verified 11/30/23 10:23) Tobacco use date assessed: 11/30/23 Dental Screening Dental Screen Date: 11/30/23 Did you have a dental visit in the last 12 months?: Yes Did you have a dental problem in the last 6 months where you did not have access to dental care?: No Was dental information given to patient?: Patient has dentist HPI Ed f/u, med refills/ establish care HPI Details 37 yr old female presents to the office for a sick visit. I am covering for her regular provider. She was in the ER for an anxiety episode a few days ago. She was given hydroxyzine which helped with her symptoms. She would like to have a refill. Patient's daughter is 15 yrs old and is going thru mental health issues and she believes that was a stress factor. [facility]LY [facility] Medical History Hyperhidrosis Obesity (BMI 30-39.9) Surgical History Previous section Family History (Updated 11/30/23 @ 10:31 by FROILAN Morris) Mother Hyperlipidemia Other Mental health disorder Social History (Updated 11/30/23 @ 10:32 by FROILAN Morris) Housing: Apartment Alcohol intake: never Patient Tobacco Use Status: Never used Tobacco e-Cigarette/Vaping Use: Never Used Second Hand Smoke Exposure: No Substance Use Type: Marijuana Substance Use Frequency: Occasionally service: No Current occupational status: employed Current occupation: [employer] Cognitive needs: No Hearing needs: No Vision needs: No Questionnaire PHQ-9 Over the last 2 weeks, how often have you been bothered by any of the following problems? 1. Little interest or pleasure in doing things: not at all 2. Feeling down, depressed, or hopeless: not at all 3. Trouble falling or staying asleep, or sleeping too much: not at all 4. Feeling tired or having little energy: not at all 5. Poor appetite or overeating: not at all 6. Feeling bad about yourself - or that you are a failure or have let yourself or your family down: not at all 7. Trouble concentrating on things, such as reading the newspaper or watching television: not at all 8. Moving or speaking so slowly that other people could have noticed. Or the opposite - being so fidgety or restless that you have been moving around a lot more than usual: not at all 9. Thoughts that you would be better off or of hurting yourself in some way: not at all Total score: 0 Depression Screening Interpretation: Negative Depression Screening Done: Yes Source: Developed by Drs. Burt Rios, Yuliet Dickerson, Nile Grace and colleagues, with an educational dalila from [employer]. Thrive Questionnaire Date Thrive assessed: 11/30/23 I am a: Patient What is your living situation today?: I have a steady place to live Within the past 12 months, did the food you bought not last and you didn't have the money to get more?: Never true Within the past 12 months, did you worry whether your food would run out before you got money to buy more?: Never true Do you have trouble paying for medicines?: No Do you have trouble getting transportation to medical appointments?: No Do you have trouble paying your heating and electricity bill?: No Do you have trouble taking care of your child, family member or friend?: No Do you have trouble with day-to-day activities such as bathing, preparing meals, shopping, managing finances, etc.?: No Are you currently unemployed and looking for a job?: No Are you interested in more education?: No Currently or been in a relationship where the following occur: no concerns reported THRIVE Score: 0 AUDIT C Alcohol Use Questionnaire (AUDIT-C) 1. How often do you have a drink containing alcohol?: Never Total Score: 0 AR-7 AMB Questionnaire AR-7 Date AR - 7 assessed: 11/30/23 Feeling nervous, anxious, or on edge: 2 = More than half the days Not being able to stop or control worryin = More than half the days Worrying too much about different things: 2 = More than half the days Trouble relaxin = Several days Being so restless that it is hard to sit still: 0 = Not at all Becoming easily annoyed or irritable: 0 = Not at all Feeling afraid as if something awful might happen: 2 = More than half the days Total AR-7 score (0-4 normal; 5-9 mild; 10-14 moderate; 15-21 severe): 9 Source: Developed by Drs. Burt Rios, Yuliet Dickerson, Nile Grace and colleagues, with an educational dalila from [employer]. Physical exam (Primary Care) Vital Signs: Last Vital Signs BP 110/76 11/30/23 10:24 BMI result Body Mass Index 31.3 Tobacco/Smoking Status: Tobacco use Status Tobacco use date assessed 11/30/23 11/30/23 10:36 Patient Tobacco Use Status Never used Tobacco 11/30/23 10:32 e-Cigarette/Vaping Use Never Used 11/30/23 10:36 PHQ-9: PHQ-9 Score PHQ-9: Total score 0 11/30/23 10:21 Depression Screening Interpretation: Negative Thrive Assessment: Date of Thrive Assessment Date Thrive assessed 11/30/23 11/30/23 10:21 Currently or been in a relationship where the following occur: no concerns reported Const General: cooperative and healthy appearing Nutritional Appearance: well nourished Orientation/consciousness: patient oriented x3 Limitations: no limitations HENMT Head: Yes normal to inspection Eyes General: appearance normal, both eyes and all related structures Neck Neck: Yes normal visual inspection Chest Chest palpation & inspection: normal palpation of entire chest wall Resp Effort & Inspection: normal respiratory effort Neuro General: patient oriented x3 Assessment and Plan Assessment & Plan (1) Anxiety disorder, unspecified: Code(s): F41.9 - Anxiety disorder, unspecified Plan: Patient wishes to have a prescription of hydroxyzine. Helps her sleep. Will use it judiciously. Does not want any treatment for anxiety including therapy. Medications: Changed From hydroxyzine HCl 10 mg PO TID 7 tabs 0RF To hydroxyzine HCl 10 mg PO DAILY 30 tabs 0RF Coding Level of Care Code Est Pt Level 3 (22711) Complex EM visit Add On G2211 Diagnoses Anxiety disorder, unspecified F41.9
[2023-11-30 10:24] VITALS: BP 110/76; BMI 31.3
== END 2023-11-30 13:04 | disposition home or self-care (01) ==
PROVIDERS: PCP Internal Medicine; Visit Provider Internal Medicine
DX: F41.9 Anxiety disorder, unspecified (principal)
CPT/HCPCS: 99213; G2211

== ENCOUNTER 2024-03-06 08:34 | Outpatient (REF) | payer SELFPAY ==
[2024-03-06 08:47] LABS: MANUAL DIFF FLAG NO
[2024-03-06 09:23] LABS: Basophils Percent Auto 0.8 % (0-2); Eosinophils Absolute Auto 0.2 X10*3/uL (0.0-0.4); Eosinophils Percent Auto 4.6 % (0-4); Hematocrit 37.8 % (37.0-47.0); Hemoglobin 12.8 g/dl (12.0-16.0); Imm Gran Abs Auto 0.01 X10*3/uL (0.00-0.03); Imm Gran Pct Auto 0.2 % (0.0-0.4); Lymphocytes Absolute Auto 2.2 X10*3/uL (1.2-4.9); Lymphocytes Percent Auto 46.5 % (20-40); Mean Corpuscular HGB Conc 33.9 g/dl (31.0-35.0); Mean Corpuscular Hemoglobin 29.5 pg (27.0-33.0); Mean Corpuscular Volume 87.1 fL (80.0-98.0); Mean Platelet Volume 10.2 fL (9.4-12.3); Monocytes Absolute Auto 0.4 X10*3/uL (0.1-1.2); Monocytes Percent Auto 7.8 % (2-11); Neutrophils Absolute Auto 1.9 x10*3/uL (2.0-8.3); Neutrophils Percent Auto 40.1 % (45-73); Platelet Count 233 X10*3/uL (160-400); Red Blood Count 4.34 X10*6/uL (4.20-5.50); Red Cell Distribution Width 12.3 % (11.0-16.0); White Blood Count 4.8 X10*3/uL (4.8-10.8)
[2024-03-06 09:48] LABS: Appearance Urine Cloudy; Color Urine Dark Yellow; Glucose Urine UA Negative (Negative); Leukocyte Esterase Urine Negative (Negative); Nitrite Urine Negative (Negative); PH 5.5 (5.0-9.0); Specific Gravity - Urine >= 1.030 (1.005-1.025); UMIC TRIGGER UACC YES; Urine Blood Trace (Negative); Urine Ketones Negative (Negative); Urine Protein Trace mg/dL (Neg-Trace)
[2024-03-06 09:57] LABS: Bacteria Urine Trace (None Seen); Hyaline Casts Urine 0-2 /LPF (0-2); WBC Urine 0-5 /HPF (0-5)
[2024-03-06 09:58] LABS: Alanine Aminotransferase 8 U/L (0-31); Albumin Level 4.5 g/dL (3.5-5.0); Alkaline Phosphatase 58 U/L (39-117); Anion Gap 11 (12-20); Aspartate Amino Transferase 13 U/L (5-31); Bilirubin Total 0.5 mg/dL (0.0-1.0); Blood Urea Nitrogen 12 mg/dL (9-16); Calcium 9.7 mg/dL (8.4-10.2); Carbon Dioxide 26 mmol/L (22-29); Chloride 108 mmol/L (96-108); Cholesterol 164 mg/dL (<200); Estimated Glomerular Filt Rate > 60; Glucose Fasting 88 mg/dL (60-99); HDL Cholesterol 45 mg/dL (>40); LDL Cholesterol Calculated 109 mg/dL (<100); Potassium 3.7 mmol/L (3.3-5.1); Sodium 141 mmol/L (135-145); Total Protein 7.6 g/dL (6.5-8.0); Triglycerides 54 mg/dL (<150)
[2024-03-06 10:19] LABS: TSH reflex Free T4 0.46 uIU/mL (0.32-4.0); Vitamin D 25-OH Total 18.1 ng/mL (>30)
== END 2024-03-06 08:35 | disposition home or self-care (01) ==
LOC: HO.LAB 08:34
PROVIDERS: PCP Internal Medicine; Visit Provider Internal Medicine
DX: Z00.00 Encounter for general adult medical examination without abnormal findings (principal); E78.00 Pure hypercholesterolemia, unspecified; E55.9 Vitamin D deficiency, unspecified; D64.9 Anemia, unspecified
CPT/HCPCS: 36415; 80053; 80061; 81001; 82306; 84443; 85025

== ENCOUNTER → 2024-03-19 10:31 | Outpatient (BNVA) | payer SELFPAY | PROVIDERS: PCP Internal Medicine; Visit Provider Internal Medicine ==

== ENCOUNTER 2024-06-07 10:00 | Outpatient (AMB) | payer OTHER, SELFPAY ==
--- NOTE | 2024-06-07 10:01 | A.OFFPC_ITS ---
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 Accompanied by: Self / Same As Patient Allergies No Known Allergies Allergy (Verified 06/07/24 10:27) Medication List - Last Reconciled 06/07/24 by Brayan Montaño MD hydroxyzine HCl 10 mg PO TID PRN ibuprofen 800 mg PO Q8H PRN Tobacco use date assessed: 06/07/24 Dental Screening Dental Screen Date: 06/07/24 Did you have a dental visit in the last 12 months?: Yes Did you have a dental problem in the last 6 months where you did not have access to dental care?: No Was dental information given to patient?: Patient has dentist HPI RE-ESTABLISH CARE OVERDUE ANNUAL PE- NEEDS PHQ9 HPI Details Patient comes in today for her annual physical examination and to reestablish care - she has not been back in over 4 years (was last seen here in 04/28/2020) Patient states that she feels well except for some pressure and discomfort in her right ear, which she states she's had for a few days now She denies any ear drainage or any recent cough/cold symptoms or sore throat She denies any headaches or dizziness; denies any fever Denies any chest pains, no SOB No nausea/vomiting, no abdominal pain No change in bowel habits noted She denies any acute urinary symptoms Reports that she has been experiencing recurrent low back pain for the past year or so She denies any recent back injury or trauma and is thinking that her back pains are mostly related to her recent weight gain States that she takes some OTC Ibuprofen when needed with (+) temporary relief Patient goes to 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 next month to recheck this She had her follow up labs done back in February 2024 - to discuss her results Patient adds that she has gained a lot of weight since she was last here and would like to get some Rx to help her lose weight [facility] Medical History (Updated 06/08/24 @ 04:44 by Brayan Montaño MD) Anxiety Vitamin D deficiency Hyperhidrosis Obesity (BMI 30-39.9) Surgical History Previous section Family History Mother Hyperlipidemia Other Mental health disorder Social History Housing: Apartment Alcohol intake: never Patient Tobacco Use Status: Never used Tobacco e-Cigarette/Vaping Use: Never Used Second Hand Smoke Exposure: No Substance Use Type: Marijuana service: No Current occupational status: employed Current occupation: [employer] Cognitive needs: No Hearing needs: No Vision needs: No Questionnaire PHQ-9 Over the last 2 weeks, how often have you been bothered by any of the following problems? 1. Little interest or pleasure in doing things: not at all 2. Feeling down, depressed, or hopeless: not at all 3. Trouble falling or staying asleep, or sleeping too much: not at all 4. Feeling tired or having little energy: not at all 5. Poor appetite or overeating: not at all 6. Feeling bad about yourself - or that you are a failure or have let yourself or your family down: not at all 7. Trouble concentrating on things, such as reading the newspaper or watching television: not at all 8. Moving or speaking so slowly that other people could have noticed. Or the opposite - being so fidgety or restless that you have been moving around a lot more than usual: not at all 9. Thoughts that you would be better off or of hurting yourself in some way: not at all Total score: 0 Depression Screening Interpretation: Negative Depression Screening Done: Yes 11710 - PHQ-9 Billing: Yes Source: Developed by Drs. Burt Rios, Yuliet Dickerson, Nile Grace and colleagues, with an educational dalila from [employer]. Thrive Questionnaire Date Thrive assessed: 06/07/24 I am a: Patient What is your living situation today?: I have a steady place to live Within the past 12 months, did the food you bought not last and you didn't have the money to get more?: Never true Within the past 12 months, did you worry whether your food would run out before you got money to buy more?: Never true Do you have trouble paying for medicines?: No Do you have trouble getting transportation to medical appointments?: No Do you have trouble paying your heating and electricity bill?: No Do you have trouble taking care of your child, family member or friend?: No Do you have trouble with day-to-day activities such as bathing, preparing meals, shopping, managing finances, etc.?: No Are you currently unemployed and looking for a job?: Yes Are you interested in more education?: No Please select the resources that you would like help with: None Currently or been in a relationship where the following occur: No concerns reported THRIVE Score: 0 AUDIT C Alcohol Use Questionnaire (AUDIT-C) 1. How often do you have a drink containing alcohol?: Never 3. How often do you have six or more drinks on one occasion?: Never Total Score: 0 Score Reviewed/Action Taken: Yes AR-7 AMB Questionnaire AR-7 Date AR - 7 assessed: 06/07/24 Feeling nervous, anxious, or on edge: 0 = Not at all Not being able to stop or control worryin = Not at all Worrying too much about different things: 0 = Not at all Trouble relaxin = Not at all Being so restless that it is hard to sit still: 0 = Not at all Becoming easily annoyed or irritable: 0 = Not at all Feeling afraid as if something awful might happen: 0 = Not at all Total AR-7 score (0-4 normal; 5-9 mild; 10-14 moderate; 15-21 severe): 0 Source: Developed by Drs. Burt Rios, Yuliet Dickerson, Nile Grace and colleagues, with an educational dalila from [employer]. Review of Systems Const Denies chills, Denies fatigue, Denies fever(s), Denies headache(s), Denies malaise and Reports weight gain Eyes Denies blurry vision, Denies change in vision, Denies irritation and Denies itchy eyes ENT Denies dysphagia, Denies dizziness, Denies ear discharge, Reports otalgia (more of right ear pressure and discomfort), Denies headache(s), Denies nasal congestion, Denies neck pain, Denies odynophagia, Denies sinus pain and Denies sore throat Card Denies chest pain, Denies rapid heart rate, Denies irregular heart rhythm, Denies palpitations and Denies dyspnea Resp Denies chest congestion, Denies cough, Denies dyspnea and Denies wheezing GI Denies abdominal pain, Denies bloating, Denies constipation, Denies dysphagia, Denies heartburn, Denies diarrhea, Denies nausea, Denies odynophagia and Denies vomiting Denies hematuria, Denies urinary frequency, Denies dysuria, Denies urinary incontinence and Denies urinary urgency Musc Reports back pain (on and off over the lower back ), Denies arthralgias, Denies joint swelling, Denies muscle weakness and Denies neck pain Skin/Breast Denies breast pain, Denies breast mass, Denies change in pigmentation, Denies lesions, Denies rash and Denies unusual bruising Neuro Denies dizziness, Denies headache(s) and Denies paresthesias Psych Denies anxiety and Denies depression Endo Denies fatigue and Denies palpitations Seth/Lymph Denies easy bruising Aller/Immun Denies itchy eyes and Denies wheezing Physical exam (Primary Care) Vital Signs: Last Vital Signs Pulse 64 06/07/24 10:02 BP 110/68 06/07/24 10:02 Oxygen Delivery Method Room Air 06/07/24 10:02 BMI result Body Mass Index 34.7 Tobacco/Smoking Status: Tobacco use Status Tobacco use date assessed 06/07/24 06/07/24 10:08 Patient Tobacco Use Status Never used Tobacco 06/07/24 10:08 e-Cigarette/Vaping Use Never Used 06/07/24 10:08 PHQ-9: PHQ-9 Score PHQ-9: Total score 0 06/07/24 10:30 Depression Screening Interpretation: Negative Thrive Assessment: Date of Thrive Assessment Date Thrive assessed 06/07/24 06/07/24 10:08 Currently or been in a relationship where the following occur: No concerns reported Const General: no acute distress, alert and awake Orientation/consciousness: patient oriented x3 HENMT Head: Yes normocephalic and Yes atraumatic Ears: external ears normal, TM normal on the left, EAC's normal and TM abnormal with fluid behind the TM on the right General nose exam: No nasal discharge present Face and sinus: Yes normal facial exam and Yes sinuses nontender Teeth and gingiva: dentition normal Throat: Yes posterior oropharynx normal and Yes tonsils normal (no TP congestion) Eyes Eyelids: Yes eyelids normal Conjunctivae: conjunctivae normal Pupils: Equal, round and reactive pupils present EOM: EOMs intact bilaterally Neck Neck: Yes no lymphadenopathy and Yes supple Thyroid: Thyroid normal Resp Auscultation: clear to auscultation bilaterally, no rales and no wheezes Cardio Rate: regular rate Rhythm: regular rhythm Heart sounds: no murmurs GI Palpation (GI): Soft to palpation, nontender and No hepatosplenomegaly present Auscultation: normal bowel sounds General: Yes no CVA tenderness Back/Spine/Pelvis Back: no CVA tenderness Thoracic/Lumbar Spine: lumbar spinal tenderness (mild) Skin Lesions: no lesions Rashes: no rashes Neuro General: patient oriented x3, moves all extremities, no focal motor deficits and CN's II-XI intact bilaterally Cranial nerves: Yes Equal, round and reactive pupils present Cognition (Neuro): normal cognition Gait exam (Neuro): Normal gait present Extrem General: Yes no clubbing, cyanosis or edema Results Reviewed Results Reviewed: Laboratory Tests 03/06/24 08:46 WBC 4.8 Hgb 12.8 Hct 37.8 Plt Count 233 Sodium 141 Potassium 3.7 Creatinine 0.70 Estimated GFR > 60 Fasting Glucose 88 Calcium 9.7 AST 13 ALT 8 Triglycerides 54 Cholesterol 164 LDL Cholesterol, Calc 109 H HDL Cholesterol 45 25-OH Vitamin D Total 18.1 L TSH 0.46 Urine pH 5.5 Ur Specific [place] >= 1.030 H Urine Protein Trace Urine Glucose (UA) Negative Urine Blood Trace H Urine Nitrite Negative Ur Leukocyte Esterase Negative Coding Level of Care Code New Pt Prev Care 18-39yr(26036 Diagnoses Annual physical exam Z00.00 Right otitis media, unspecified otitis media type H66.91 Otitis media type: unspecified Vitamin D deficiency E55.9 Midline low back pain without sciatica, unspecified chronicity M54.50 Chronicity: unspecified Back pain laterality: midline Sciatica presence: without sciatica Anxiety F41.9 Obesity (BMI 30-39.9) E66.9 Additional Codes PHQ-9 - 34485 - PHQ-9 Billing: Yes ([id number]) Assessment & Plan Assessment & Plan (1) Annual physical exam: Code(s): Z00.00 - Encounter for general adult medical examination without abnormal findings Category: Medical Plan: Results of her labs done back in February (2023) reviewed and discussed with patient She is currently up-to-date with her annual gynecology exam and pap smear - goes to [facility] in [place] (2) Otitis media, right: Code(s): H66.91 - Otitis media, unspecified, right ear Category: Medical Qualifiers: Otitis media type: unspecified Qualified Code(s): H66.91 - Otitis media, unspecified, right ear Plan: Will start patient empirically on Augmentin 875 mg BID x 10 days (3) Vitamin D deficiency: Code(s): E55.9 - Vitamin D deficiency, unspecified Category: Medical Plan: Continue Vitamin D3 2000 units QD - she was advised to start taking this when her labs came back in February 2024 with low vitamin D level (4) Low back pain: Code(s): M54.50 - Low back pain, unspecified Category: Medical Qualifiers: Chronicity: unspecified Back pain laterality: midline Sciatica presence: without sciatica Qualified Code(s): M54.50 - Low back pain, unspecified Plan: This is likely due to her recent weight gain and should improve with some weight loss Reinforced activity and weight-lifting restrictions to minimize aggravating her low back pain If her low back pain persists or gets worse, can consider sending her for lumbar spine x-rays for further evaluation (5) Anxiety: Code(s): F41.9 - Anxiety disorder, unspecified Category: Medical Plan: Continue Hydroxyzine 10 mg TID PRN (6) Obesity (BMI 30-39.9): Code(s): E66.9 - Obesity, unspecified Category: Medical Plan: Reinforced diet/exercise as tolerated/lose weight Per request, will try starting her on Wegovy 0.25 mg SQ once a week (if covered by her health insurance) to help her lose weight Plan Follow up in 4 months Medications: New amoxicillin-pot clavulanate 875-125 mg 1 tab PO BID 10 days 20 tabs 0RF semaglutide (weight loss) (Wegovy) administer weeks 1 through 4 of therapy 0.25 mg (0.5 mL) subcut QWEEK 4 weeks 2 mL 0RF cholecalciferol (vitamin D3) 50 mcg PO DAILY 90 days 90 caps 3RF E55.9 - Vitamin D deficiency, unspecified
[2024-06-07 10:02] VITALS: BP 110/68; PULSE 64; BMI 34.7
== END 2024-06-07 10:49 | disposition home or self-care (01) ==
PROVIDERS: PCP Internal Medicine; Visit Provider Internal Medicine
DX: Z00.00 Encounter for general adult medical examination without abnormal findings (principal); H66.91 Otitis media, unspecified, right ear; E66.9 Obesity, unspecified; Z68.34 Body mass index [BMI] 34.0-34.9, adult; E55.9 Vitamin D deficiency, unspecified; M54.50 Low back pain, unspecified; F41.9 Anxiety disorder, unspecified

== ENCOUNTER → 2024-06-07 10:00 | Outpatient (BNVA) | payer OTHER, SELFPAY | PROVIDERS: PCP Internal Medicine; Visit Provider Internal Medicine | DX: Z00.00 Encounter for general adult medical examination without abnormal findings (principal); H66.91 Otitis media, unspecified, right ear; E55.9 Vitamin D deficiency, unspecified; M54.50 Low back pain, unspecified; F41.9 Anxiety disorder, unspecified; E66.9 Obesity, unspecified; Z68.34 Body mass index [BMI] 34.0-34.9, adult | CPT/HCPCS: 96127; 99385 ==

== ENCOUNTER 2024-10-09 09:46 | Outpatient (AMB) | payer OTHER, SELFPAY ==
[2024-10-09 09:59] VITALS: BP 110/80; PULSE 78; O2SAT 99; BMI 37.3
--- NOTE | 2024-10-09 09:59 | A.OFFPC_ITS ---
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 Accompanied by: Self / Same As Patient Allergies No Known Allergies Allergy (Verified 10/09/24 10:31) Medication List - Last Reconciled 10/09/24 by Brayan Montaño MD cholecalciferol (vitamin D3) 50 mcg PO DAILY 90 days hydroxyzine HCl 10 mg PO TID PRN ibuprofen 800 mg PO Q8H PRN Tobacco use date assessed: 10/09/24 Dental Screening Dental Screen Date: 10/09/24 HPI 4mt f/u HPI Details Patient comes in today for her follow up visit States that she feels okay We tried starting patient on Wegovy at her last visit but her Rx was denied by insurance and she has gained more weight since She denies any headaches or dizziness Denies any chest pains, no SOB No nausea/vomiting, no abdominal pain No change in bowel habits noted [facility] Medical History Anxiety Vitamin D deficiency Hyperhidrosis Obesity (BMI 30-39.9) Surgical History Previous section Family History Mother Hyperlipidemia Other Mental health disorder Social History Housing: Apartment Alcohol intake: never Patient Tobacco Use Status: Never used Tobacco e-Cigarette/Vaping Use: Never Used Second Hand Smoke Exposure: No Substance Use Type: Marijuana service: No Current occupational status: employed Current occupation: [employer] Cognitive needs: No Hearing needs: No Vision needs: No Questionnaire PHQ-9 Over the last 2 weeks, how often have you been bothered by any of the following problems? 1. Little interest or pleasure in doing things: not at all 2. Feeling down, depressed, or hopeless: not at all 3. Trouble falling or staying asleep, or sleeping too much: not at all 4. Feeling tired or having little energy: not at all 5. Poor appetite or overeating: not at all 6. Feeling bad about yourself - or that you are a failure or have let yourself or your family down: not at all 7. Trouble concentrating on things, such as reading the newspaper or watching television: not at all 8. Moving or speaking so slowly that other people could have noticed. Or the opposite - being so fidgety or restless that you have been moving around a lot more than usual: not at all 9. Thoughts that you would be better off or of hurting yourself in some way: not at all Total score: 0 Depression Screening Interpretation: Negative Depression Screening Done: Yes 91998 - PHQ-9 Billing: Yes Source: Developed by Drs. Burt Rios, Yuliet Dickerson, Nile Grace and colleagues, with an educational dalila from [employer] Thrive Questionnaire Date Thrive assessed: 10/09/24 I am a: Patient What is your living situation today?: I have a steady place to live Within the past 12 months, did the food you bought not last and you didn't have the money to get more?: Never true Within the past 12 months, did you worry whether your food would run out before you got money to buy more?: Never true Do you have trouble paying for medicines?: No Do you have trouble getting transportation to medical appointments?: No Do you have trouble paying your heating and electricity bill?: No Do you have trouble taking care of your child, family member or friend?: No Do you have trouble with day-to-day activities such as bathing, preparing meals, shopping, managing finances, etc.?: No Are you currently unemployed and looking for a job?: No Are you interested in more education?: No Please select the resources that you would like help with: None Currently or been in a relationship where the following occur: No concerns reported THRIVE Score: 0 AUDIT C Alcohol Use Questionnaire (AUDIT-C) 1. How often do you have a drink containing alcohol?: Never 3. How often do you have six or more drinks on one occasion?: Never Total Score: 0 Score Reviewed/Action Taken: Yes AR-7 AMB Questionnaire AR-7 Date AR - 7 assessed: 10/09/24 Feeling nervous, anxious, or on edge: 0 = Not at all Not being able to stop or control worryin = Not at all Worrying too much about different things: 0 = Not at all Trouble relaxin = Not at all Being so restless that it is hard to sit still: 0 = Not at all Becoming easily annoyed or irritable: 0 = Not at all Feeling afraid as if something awful might happen: 0 = Not at all Total AR-7 score (0-4 normal; 5-9 mild; 10-14 moderate; 15-21 severe): 0 Source: Developed by Drs. Burt Rios, Yuliet Dickerson, Nile Grace and colleagues, with an educational dalila from [employer] Review of Systems Const Denies chills, Denies fatigue, Denies fever(s) and Denies headache(s) ENT Denies dysphagia, Denies dizziness, Denies otalgia, Denies headache(s), Denies neck pain, Denies odynophagia and Denies sore throat Card Denies chest pain, Denies irregular heart rhythm, Denies palpitations and Denies dyspnea Resp Denies chest congestion, Denies cough and Denies dyspnea GI Denies abdominal pain, Denies constipation, Denies dysphagia, Denies heartburn, Denies diarrhea, Denies nausea, Denies odynophagia and Denies vomiting Denies urinary frequency, Denies dysuria and Denies urinary urgency Musc Reports back pain (on and off over the lower back ), Denies arthralgias and Denies neck pain Skin/Breast Denies rash Neuro Denies dizziness, Denies headache(s) and Denies paresthesias Psych Denies anxiety and Denies depression Endo Denies fatigue and Denies palpitations Seth/Lymph Denies easy bruising Physical exam (Primary Care) Vital Signs: Last Vital Signs Pulse 78 10/09/24 09:59 BP 110/80 10/09/24 09:59 Pulse Ox 99 10/09/24 09:59 Oxygen Delivery Method Room Air 10/09/24 09:59 BMI result Body Mass Index 37.3 Tobacco/Smoking Status: Tobacco use Status Tobacco use date assessed 10/09/24 10/09/24 10:07 Patient Tobacco Use Status Never used Tobacco 10/09/24 10:07 e-Cigarette/Vaping Use Never Used 10/09/24 10:07 PHQ-9: PHQ-9 Score PHQ-9: Total score 0 10/09/24 10:07 Depression Screening Interpretation: Negative Thrive Assessment: Date of Thrive Assessment Date Thrive assessed 10/09/24 10/09/24 10:07 Currently or been in a relationship where the following occur: No concerns reported Const General: no acute distress and alert HENMT Ears: TM's normal bilaterally and EAC's normal Throat: Yes posterior oropharynx normal and Yes tonsils normal (no TP congestion) Neck Neck: Yes supple and No lymphadenopathy Thyroid: Thyroid normal Resp Auscultation: clear to auscultation bilaterally, no rales and no wheezes Cardio Rate: regular rate Rhythm: regular rhythm Heart sounds: no murmurs GI Palpation (GI): Soft to palpation and nontender Auscultation: normal bowel sounds General: Yes no CVA tenderness Back/Spine/Pelvis Back: no CVA tenderness Thoracic/Lumbar Spine: lumbar spinal tenderness (mild) Skin Rashes: no rashes Extrem General: Yes no clubbing, cyanosis or edema Coding Level of Care Code Est Pt Level 3 (91516) Diagnoses Vitamin D deficiency E55.9 Midline low back pain without sciatica, unspecified chronicity M54.50 Chronicity: unspecified Back pain laterality: midline Sciatica presence: without sciatica Anxiety F41.9 Obesity (BMI 30-39.9) E66.9 Additional Codes PHQ-9 - 95454 - PHQ-9 Billing: Yes ([id number]) Assessment & Plan Assessment & Plan (1) Vitamin D deficiency: Code(s): E55.9 - Vitamin D deficiency, unspecified Category: Medical Plan: Continue Vitamin D3 2000 units QD Will recheck her labs and vitamin D level in May 2025 - she is advised to get her labs done just before her annual physical appointment (2) Low back pain: Code(s): M54.50 - Low back pain, unspecified Category: Medical Qualifiers: Chronicity: unspecified Back pain laterality: midline Sciatica presence: without sciatica Qualified Code(s): M54.50 - Low back pain, unspecified Plan: This is likely due to her recent weight gain and should improve with some weight loss Reinforced activity and weight-lifting restrictions to minimize aggravating her low back pain If her low back pain persists or gets worse, can consider sending her for lumbar spine x-rays for further evaluation (3) Anxiety: Code(s): F41.9 - Anxiety disorder, unspecified Category: Medical Plan: Continue Hydroxyzine 10 mg TID PRN (4) Obesity (BMI 30-39.9): Code(s): E66.9 - Obesity, unspecified Category: Medical Plan: Reinforced diet/exercise as tolerated/lose weight We tried starting her on Wegovy 0.25 mg SQ once a week to help her lose weight at her last visit but this was denied by insurance Will go ahead and refer her to weight management - we have been advised previously that her insurance will only cover the weight loss medication(s) if they are prescribed in conjunction with a certified weight management program Plan To return as scheduled in May 2025 for her next annual physical examination Orders: Orders UA CC w/rflx Micro + Cult 06/01/25 R30.0 - Dysuria, Z00.00 - Encounter for general adult medical examination without abnormal findings Complete Blood Count Auto Diff 06/01/25 D64.9 - Anemia, unspecified, Z00.00 - Encounter for general adult medical examination without abnormal findings Comprehensive Roy. Panel Fast 06/01/25 E78.00 - Pure hypercholesterolemia, unspecified, Z00.00 - Encounter for general adult medical examination without abnormal findings Lipid Panel 06/01/25 E78.00 - Pure hypercholesterolemia, unspecified, Z00.00 - Encounter for general adult medical examination without abnormal findings TSH reflex Free T4 06/01/25 E78.00 - Pure hypercholesterolemia, unspecified, Z00.00 - Encounter for general adult medical examination without abnormal findings Vitamin D 25-OH Total 06/01/25 E55.9 - Vitamin D deficiency, unspecified, Z00.00 - Encounter for general adult medical examination without abnormal findings Referrals Medical Weight Management Referral E66.9 - Obesity, unspecified
--- OUTSIDE RECORDS SUMMARY | 2024-10-09 10:56 | XMS_ITS | Clinical Summary ---
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 Role Phone Unavailable Primary Care Provider Unavailabl e Social History Tobacco Use Types Packs/Day Years Used Date Smoking Tobacco: Never Assessed Comments Unknown Sex and Gender Information Value Date Recorded Sex Assigned at Not on file Legal Sex Female 5:13 PM EST Gender Identity Not on file Sexual Orientation Not on file Plan of Treatment Health Maintenance Due Date Last Done Comments DTaP,Tdap,and Td Vaccines (1 - Tdap) 2004 Hepatitis B Vaccines (1 of 3 - 19+ 3-dose series) 2004 Cervical Cancer Screening: P ap Smear 2006 COVID-19 Vaccine (2023-2 5 season) 2024 Influenza Vaccine (Season Ended) 2025 HIB Vaccines Aged Out No longer eligi ble based on patient's age to complete this topic HPV Vaccines Aged Out No longer eligi ble based on patient's age to complete this topic Hepatitis A Vaccines Aged Out No long er eligible based on patient's age to complete this topic IPV Vaccines Aged Out No longer eligi ble based on patient's age to complete this topic MMR Vaccines Aged Out No longer eligi ble based on patient's age to complete this topic Meningococcal ACWY Vaccine Aged Out N o longer eligible based on patient's age to complete this topic Meningococcal B Vaccine Aged Out No l onger eligible based on patient's age to complete this topic Pneumococcal Vaccine: Pediat rics (0 to 5 Years) and At-Risk Patients (6 to 64 Years) Aged Out No longer eligible b ased on patient's age to complete this topic RSV Immunization Patients Un tara 20 months Aged Out No longer eligible b ased on patient's age to complete this topic Varicella Vaccines Aged Out No longer eligible based on patient's age to complete this topic
== END 2024-10-09 10:37 | disposition home or self-care (01) ==
LOC: HO.HMCH 09:47
PROVIDERS: PCP Internal Medicine; Visit Provider Internal Medicine
DX: E55.9 Vitamin D deficiency, unspecified (principal); M54.50 Low back pain, unspecified; E66.9 Obesity, unspecified; Z68.37 Body mass index [BMI] 37.0-37.9, adult; F41.9 Anxiety disorder, unspecified

== ENCOUNTER → 2024-10-09 09:46 | Outpatient (BNVA) | payer OTHER, SELFPAY | PROVIDERS: PCP Internal Medicine; Visit Provider Internal Medicine | DX: E55.9 Vitamin D deficiency, unspecified (principal); M54.50 Low back pain, unspecified; F41.9 Anxiety disorder, unspecified; E66.9 Obesity, unspecified; Z68.37 Body mass index [BMI] 37.0-37.9, adult; Z79.899 Other long term (current) drug therapy | CPT/HCPCS: 96127; 99212 ==

== ENCOUNTER 2024-11-06 09:11 | Outpatient (AMB) | payer OTHER, SELFPAY ==
--- NOTE | 2024-11-06 09:14 | AM.OFFVISNUR ---
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 unit/0.1 mL intradermal injection solution Performing Provider: Brayan Montaño MD [facility] Administered by: Rani Gan RN on 11/06/24 09:23 Dose Route Admin Location Dispensed Lot Number Expiration Date [facility] Combustion Engineer 0.1 mL intradermal right forearm 0.1 mL [id number] 05/12/27 90991-291-39 [employer] Assessment & Plan Assessment & Plan Orders: Orders AMB PPD Planted Today Z11.1 - Encounter for screening for respiratory tuberculosis Medications: New tuberculin PPD 0.1 mL intradermal ONCE 0.1 mL 0RF Z11.1 - Encounter for screening for respiratory tuberculosis Coding
--- OUTSIDE RECORDS SUMMARY | 2024-11-06 09:44 | XMS_ITS | Clinical Summary ---
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
== END 2024-11-06 09:25 | disposition home or self-care (01) ==
LOC: HO.HMCH 09:12
PROVIDERS: PCP Internal Medicine; Visit Provider Internal Medicine
DX: Z11.1 Encounter for screening for respiratory tuberculosis (principal)

== ENCOUNTER → 2024-11-06 09:11 | Outpatient (BNVA) | payer OTHER, SELFPAY | PROVIDERS: PCP Internal Medicine; Visit Provider Internal Medicine | DX: Z11.1 Encounter for screening for respiratory tuberculosis (principal) | CPT/HCPCS: 86580 ==

== ENCOUNTER → 2024-11-08 09:46 | Outpatient (BNVA) | payer OTHER, SELFPAY | PROVIDERS: PCP Internal Medicine; Visit Provider Internal Medicine | DX: Z13.89 Encounter for screening for other disorder (principal) ==

== ENCOUNTER 2025-06-07 09:03 | Outpatient (AMB) | payer OTHER, SELFPAY ==
--- OUTSIDE RECORDS SUMMARY | 2025-06-02 23:59 | XMS_ITS | Continuity of Care Document ---
Author Organization [facility] Address [address] [place] [id number] Support Name Relationship Address Phone NICOLE, SIM Personal Relationship Unknown Mindi vailable NICOLE, SIM Personal Relationship Unknown Mindi vailable NICOLE, SIM Personal Relationship Unknown Mindi vailable NICOLE, SIM Personal Relationship Unknown Mindi vailable NICOLE, SIM Personal Relationship Unknown Mindi vailable NICOLE, SIM Personal Relationship Unknown Mindi vailable NICOLE, SIM Personal Relationship Unknown Mindi vailable NICOLE, SIM Personal Relationship Unknown Mindi vailable NICOLE, SIM Personal Relationship Unknown Mindi vailable NICOLE, SIM Personal Relationship Unknown Mindi vailable NICOLE, SIM Personal Relationship Unknown Mindi vailable OTT, MARVEL mother Unknown Unavailable PROGRAM, STD Personal Relationship Unknown Unavai lable NICOLE, SIM Personal Relationship Unknown Mindi vailable OTT, DEMETRIS Personal Relationship Unknown Mindi vailable NICOLE, SIM Personal Relationship Unknown Mindi vailable [place], MISHA sibling Unknown Unavaila ble NICOLE, SIM Personal Relationship Unknown Mindi vailable NICOLE, SIM Personal Relationship Unknown Mindi vailable NICOLE, SIM Personal Relationship Unknown Mindi vailable NICOLE, SIM Personal Relationship Unknown Mindi vailable NICOLE, SIM Personal Relationship Unknown Mindi vailable NICOLE, SIM Personal Relationship Unknown Mindi vailable NICOLE, SIM Personal Relationship Unknown Mindi vailable NICOLE, SIM Personal Relationship Unknown Mindi vailable NICOLE, SIM Personal Relationship Unknown Mindi vailable NICOLE, SIM Personal Relationship Unknown Mindi vailable OTT, DEMETRIS Personal Relationship Unknown Mindi vailable NICOLE, SIM Personal Relationship Unknown Mindi vailable Care Team Providers Care Meal Cooker Name Role Phone Brayan Montaño MD Primary Care Physician Encounter [facility] Date(s): 02/15/25 - 06/02/25 [facility] [address] [address] Attending Physician: Not on Staff, Attending MD Admitting Physician: Not on Staff, Admitting MD Referring Physician: Not on Staff, Referring MD Encounter Type: Pre-OutPatient One Time Allergies, Adverse Reactions, Alerts No Known Allergies Medications hydrOXYzine hydrochloride 25 mg oral tablet 1 tablet = 25 mg, By Mouth, Daily, # 30 tablet, 0 Refills, Maintenance, 01/20/24 9:35:00 AM EDT, Tablet, Partial fill upon patient request if the prescription is for a schedule II opioid drug. Start Date: 01/20/24 Status: Ordered Medication Dispense Status: Completed Quantity: 30.0 Unit: tablet Total Allowed Fills: 1 Fills Dispensed: 0 Problem List Condition Confirmation Course Effective Dates Status H ealth Status Informant Atypical squamous cell changes of undetermined significance (ASCUS) on cervical cytology with negative high risk human papilloma virus (HPV) test result Confirmed Active Depo-Provera contraceptive status Confirmed Active Obese class II Confirmed Active Social History Social History Type Response Sexual Sexually involved in last 6 months: Yes. Smoking Status Former smoker, quit more than 30 days ago entered on: 03/25/22 Sex Sex Representation Female (finding) Patient Care team information Care Team Personnel Name: Brayan Montaño MD Position: Reference Physician Member Role: PCP Address: [address] [place] [address] Telecom: Care Team Related Persons Name: MARVEL OTT Name: MISHA BURDEN Insurance Providers Guarantor name: DEMETRIS OTT Health Plan Information #: 1 Payer: [employer] Payer Identifier: NA Member Number: [id number] Group Number: [id number] Subscriber Identifier: [id number] Relationship to Subscriber: self Coverage Type: NA Coverage Verification Date: NA Telecom: NA Address:
--- OUTSIDE RECORDS SUMMARY | 2025-06-07 09:05 | XMS_ITS | Clinical Summary ---
Author Organization [facility] Address [address] [place] [address] Care Team Providers Care Pediatric Dental Assistant Name Role Phone Unavailable Primary Care Provider [...] Cervical Cancer Screening: P ap Smear 2006 HPV Vaccines (1 - 3-dose SCD M series) 2012 Depression Screening 06/13/2024 COVID-19 Vaccine ( - 2024-2 6 season) 2025 Influenza Vaccine (#1) 2025 RSV Immunization Adult Patie nts (1 - 1-dose 75+ series) 2060 HIB Vaccines Aged Out No longer eligi [...] 5 Years) and At-Risk Patients (6 to 49 Years) Aged Out No longer eligible b ased on patient's age to complete this topic RSV Immunization Patients Un tara 20 months Aged Out No longer eligible b ased on patient's age to complete this topic Varicella Vaccines Aged Out No longer eligible based on patient's age to complete this topic
[2025-06-07 09:27] VITALS: BP 126/80; PULSE 60; RESP 18; TEMP 37.2; O2SAT 99; BMI 34.5
--- NOTE | 2025-06-07 09:27 | AM.OFFWIN_ITS ---
Intake Vital Signs 06/07/25 09:27 Height 5 ft 3 in Weight 195 lb BMI 34.5 BP 126/80 Blood Pressure Location Lt brachial Position Sitting Respiration 18 Pulse 60 Pulse Source Pulse Oximeter Temp 99 F Temp Source Oral Pulse Oximetry (%) 99 Oxygen Delivery Method Room Air Intake Visit Reasons: EP Cough, ear pain right side, chest discomfort Intake Note: EP has cough, right side ear pain, chill, chest and abdomen discomfort while coughing started two weeks ago. Patient Tobacco Use Status: Never used Tobacco Allergies No Known Allergies Allergy (Verified 06/07/25 09:41) Do you need a note to return to daycare/school/sports/work: Yes HPI HPI Comments History of Present Illness Details History of Present Illness The patient is a 39 year old female presenting with a persistent cough for 2 weeks. - The patient has experienced a cough fo r about 2 weeks, which she initially believed was a common cold. - The cough sometimes causes left-sided abdominal muscle pain due to forceful coughing. - Associated symptoms include wheezing, right ear pain, and nasal congestion. - She reported having chills the previou s night. - The patient denies any personal histor y of asthma - She attempted self-treatment with Muci nex, cough drops, tea, and a 3-4 day course of amoxicillin that she had at home and ibuprofen about a week ago, none of which provided relief. Review of Systems - Constitutional: Reports chills. - HEENT: Reports right otalgia, popping and clicking sensation in the ear. Reports nasal congestion and postnasal drip. Denies sinus pain or pressure. - Respiratory: Reports a cough for 10 we eks and wheezing. Denies shortness of breath. - Gastrointestinal: Reports left-sided a bdominal muscle pain secondary to coughing. Reports nausea. Denies vomiting or diarrhea. Physical Exam General Appearance: Normal appearance, well developed. No acute distress HEENT: Normocephalic, atraumatic. External ears and ear canals normal. TM without erythema or bulging, however middle ear effusions noted bilaterally. Clear nasal drainage with post nasal drip present. Oropharynx clear without erythema or exudate. No cervical lymphadenopathy palpated. Cardiac: Regular rate and rhythm. No murmurs. Pulmonary: No respiratory distress. Speaking in full sentences. Clear to auscultation bilaterally Musculoskeletal: Moving all extremities spontaneously and against gravity Mental Status: Alert and Oriented x 3 Psychiatric: Normal mood. Normal affect. [facility] Medical History Anxiety Vitamin D deficiency Hyperhidrosis Obesity (BMI 30-39.9) Surgical History Previous section Family History Mother Hyperlipidemia Other Mental health disorder Social History Housing: Apartment Alcohol intake: never Patient Tobacco Use Status: Never used Tobacco e-Cigarette/Vaping Use: Never Used Second Hand Smoke Exposure: No Substance Use Type: Marijuana service: No Current occupational status: employed Current occupation: [employer] Cognitive needs: No Hearing needs: No Vision needs: No Physical Exam Vital Signs: Last Vital Signs Temp 99 F 06/07/25 09:27 Pulse 60 06/07/25 09:27 Resp 18 06/07/25 09:27 BP 126/80 06/07/25 09:27 Pulse Ox 99 06/07/25 09:27 Oxygen Delivery Method Room Air 06/07/25 09:27 BMI result Body Mass Index 34.5 Assessment & Plan Assessment & Plan (1) Acute bronchitis: Code(s): J20.9 - Acute bronchitis, unspecified Qualifiers: Bronchitis organism: unspecified organism Qualified Code(s): J20.9 - Acute bronchitis, unspecified Plan - The patient's 2-week cough, wheezing, congestion are indicative of acute bronchitis. - Low suspicion for pneumonia given clear lungs to auscultation, afebrile, and patient saturating well--CXR not performed. - A short course of oral steroids (prednisone 40 mg daily for 5 days) was prescribed to help with symptoms. Discussed temporary increase in blood sugars while taking steroids. Patient was also informed about potential side effects such as insomnia and upset stomach. - An albuterol inhaler was also prescribed for use as needed (1 puff every 4-6 hours) to help with the cough and wheezing. - The patient's right ear pain is attributed to eustachian tube dysfunction, evidenced by fluid behind the tympanic membrane without signs of infection. - It was recommended she use Flonase nasal spray to reduce inflammation and promote fluid drainage. - A COVID/flu/RSV swab was performed based on patient preference. Discussed with patient that symptoms have been ongoing for 2 weeks, results would likely not change treatment. - She was instructed to monitor for any new or worsening symptoms such as fevers, chest pain, or increased shortness of breath and to seek care if they occur. Patient was informed and verbally consented to the use of an ambient scribe for clinic note documentation during the visit. Orders: Orders SARS-CoV2/FLU/RSV 06/07/25 R05.9 - Cough, unspecified Medications: New albuterol sulfate 90 mcg/actuation 1 puff inhalation Q4-6H PRN 6.7 grams 0RF shortness of breath or wheezing or cough prednisone 40 mg (2 x 20 mg) PO DAILY 10 tabs 0RF Coding Level of Care Code Est Pt Level 3 (39282) Diagnoses Acute bronchitis, unspecified organism J20.9 Bronchitis organism: unspecified organism
== END 2025-06-07 10:10 | disposition home or self-care (01) ==
PROVIDERS: PCP Internal Medicine; Visit Provider Family Medicine
DX: J20.9 Acute bronchitis, unspecified (principal)

== ENCOUNTER 2025-06-07 09:03 | Outpatient (REF) | payer OTHER, SELFPAY ==
[2025-06-07 15:42] LABS: Resp Syncy Virus RNA Qual PCR NEGATIVE (Negative); SARS COV2 PCR INHOUSE NEGATIVE (Negative)
== END 2025-06-07 09:04 | disposition home or self-care (01) ==
LOC: HO.LAB 09:03
PROVIDERS: PCP Internal Medicine; Visit Provider Family Medicine
DX: J20.9 Acute bronchitis, unspecified (principal)
CPT/HCPCS: 87637